=== PATIENT | female | born 1970 | race Caucasian/White ===

== ENCOUNTER 2020-11-21 21:44 | Emergency (ER) | payer BC ==
[~2020-11-21] VITALS: Ht 165.1 cm; Wt 65.8 kg
[2020-11-21 22:31] LABS: HEMATOCRIT 38.6 % (31.2-41.9); MEAN CORPUSCULAR VOLUME 89.1 fL (75.5-95.3); PLATELET COUNT (AUTO) 199 K/uL (179-408)
--- NOTE | 2020-11-21 22:36 | NUR ---
Pt remains awake, alert and oriented. Family at bedside, NAD noted.
[2020-11-21 22:47] LABS: ACETAMINOPHEN < 2.0 ug/mL (10-30); ALANINE AMINOTRANSFERASE 16 U/L (14-59); ALKALINE PHOSPHATASE 54 U/L (50-136); ASPARTATE AMINOTRANSFERASE 20 U/L (15-37); BILIRUBIN,DIRECT 0.1 mg/dL (0.0-0.2); BILIRUBIN,TOTAL 0.4 mg/dL (0.2-1.0); CARBON DIOXIDE 26 mmol/L (21-32); CHLORIDE 104 mmol/L (98-107); CREATININE 0.7 mg/dL (0.6-1.3); GLUCOSE 97 mg/dL (74-106); POTASSIUM 3.6 mmol/L (3.5-5.1); TOTAL PROTEIN, SERUM 7.5 g/dL (6.4-8.2); UREA NITROGEN, BLOOD 12 mg/dL (7-18)
[2020-11-21 22:48] LABS: ETHANOL 19 MG/DL (0-0)
[2020-11-21 23:19] LABS: *BILIRUBIN,URIN NEGATIVE (NEGATIVE); *BLOOD, URINE NEGATIVE (NEGATIVE); *CLARITY,URINE CLEAR (CLEAR); *KETONES,URINE NEGATIVE (NEGATIVE); *UROBILINOGEN,URINE 0.2 E.U./dl (NORMAL); LEUKOCYTE ESTERASE ,URINE NEGATIVE (NEGATIVE); NITRITE, URINE NEGATIVE (NEGATIVE); PH,URINE 5.5 (5.0-8.0); UGLUCOSE NEGATIVE (NEGATIVE)
[2020-11-21 23:21] LABS: *COLOR,URINE STRAW (YELLOW)
[2020-11-21 23:22] LABS: *URINE HCG, QUAL NEGATIVE (NEGATIVE)
[2020-11-21 23:39] LABS: *AMPHETAMINE, URINE NEGATIVE (NEGATIVE); *CANNABINOID, URINE NEGATIVE (NEGATIVE); *COCCAINE, URINE NEGATIVE (NEGATIVE); *OPIATE, URINE NEGATIVE (NEGATIVE); *PHENCYCLIDINE SCREEN,URINE NEGATIVE (NEGATIVE)
[2020-11-22] MEDS ORDERED: PROP10TA10 PO (00:17)
[2020-11-22] MEDS: PROPRANOLOL HCL 10 MG TABLET PO ONE (00:44)
[2020-11-22] MEDS ORDERED: PROPRANOLOL HCL 10 MG TABLET ONE (00:47)
--- NOTE | 2020-11-22 01:07 | NUR ---
Patient discharged to home in stable condition with family. Written and verbal after care instructions given. Patient verbalizes understanding of instructions. Stressed follow up or return to ER for worsening s/s.
[2020-11-22 01:08] VITALS: BP 125/73
== END 2020-11-22 01:08 | disposition home or self-care (01) ==
LOC: ER 21:46
DX: T42.4X1A Poisoning by benzodiazepines, accidental (unintentional), initial encounter (principal); Y92.89 Other specified places as the place of occurrence of the external cause; G47.00 Insomnia, unspecified; F41.9 Anxiety disorder, unspecified; E03.9 Hypothyroidism, unspecified
CPT/HCPCS: 36415; 84443; 84703; 85025; 93005; A4663; G0480